=== PATIENT | male | born 1975 | race African-American/Black ===

== ENCOUNTER 2017-05-18 14:21 | Emergency (ER) | payer OTHER ==
[~2017-05-18] VITALS: Ht 170.2 cm; Wt 79.5 kg
[2017-05-18 14:28] VITALS: BP 124/62; PULSE 72; RESP 18; TEMP 98; O2SAT 96
--- NOTE | 2017-05-18 15:06 | PD ---
HPI Chief Complaint: Psychiatric Symptoms Time Seen by Provider: 15:03 Travel History International Travel<30 days: No Contact w/Intl Traveler<30days: No Traveled to known affect area: No History of Present Illness HPI Patient is a 42-year-old male presenting to emergency for evaluation of suicidal ideations. Patient is currently under [place] act for making threats to run into traffic. He reports a previous suicide attempt 10 years ago where he attempted to run into traffic. He reports that he's been feeling more depressed and suicidal for the last 4 days. Patient endorses substance abuse, he states he smokes crack cocaine. He was released from detention 2 weeks ago, he had been on Celexa while in group home and has been off of it for 2 weeks because he has no new prescription. He has no physical complaints at this time. He denies any visual auditory hallucinations. He last smoked crack cocaine this morning, he has not had any alcohol today. [facility] Past Medical History Depression: Yes Immunizations Current: Yes Social History Alcohol Use: Yes Tobacco Use: Yes Substance Use: Yes Allergies-Medications (Allergen,Severity, Reaction): Coded Allergies: No Known Allergies (Unverified , 05/18/17) Reported Meds & Prescriptions Reported Meds & Active Scripts Active Celexa (Citalopram Hydrobromide) 20 Mg Tab 20 Mg PO DAILY Reported Remeron (Mirtazapine) 15 Mg Tab 15 Mg PO HS Review of Systems Except as stated in HPI: all other systems reviewed are Neg Psychiatric: Positive: Depression, Suicidal Ideations, Substance Abuse Physical Exam Narrative GENERAL: Well-developed, well-nourished, alert male. Resting in no acute distress. SKIN: Focused skin assessment warm/dry. HEAD: Atraumatic. Normocephalic. EYES: Pupils equal and round. No scleral icterus. No injection or drainage. ENT: No nasal bleeding or discharge. Mucous membranes pink and moist. NECK: Trachea midline. No JVD. CARDIOVASCULAR: Regular rate and rhythm. No murmur appreciated. RESPIRATORY: No accessory muscle use. Clear to auscultation. Breath sounds equal bilaterally. GASTROINTESTINAL: Abdomen soft, non-tender, nondistended. Hepatic and splenic margins not palpable. MUSCULOSKELETAL: No obvious deformities. No clubbing. No cyanosis. No edema. NEUROLOGICAL: Awake and alert. No obvious cranial nerve deficits. Motor grossly within normal limits. Normal speech. PSYCHIATRIC: Depressed mood and affect; insight and judgment normal. Data Data Last Documented VS Vital Signs Date Time Temp Pulse Resp B/P Pulse Ox O2 Delivery O2 Flow Rate FiO2 05/18/17 16:16 98.0 62 16 121/75 97 Room Air Orders Complete Blood Count With Diff (05/18/17 14:56) Comprehensive Metabolic Panel (05/18/17 14:56) Psych Screen (05/18/17 14:56) Drug Screen, Random Urine (05/18/17 14:56) Alcohol (Ethanol) (05/18/17 14:56) Salicylates (Aspirin) (05/18/17 14:56) Tylenol (Acetaminophen) (05/18/17 14:56) Potassium Chloride (Kcl) (05/18/17 17:45) Labs Laboratory Tests Test 05/18/17 16:24 White Blood Count 6.2 TH/MM3 Red Blood Count 4.74 MIL/MM3 Hemoglobin 13.8 GM/DL Hematocrit 40.8 % Mean Corpuscular Volume 86.1 FL Mean Corpuscular Hemoglobin 29.1 PG Mean Corpuscular Hemoglobin 33.8 % Concent Red Cell Distribution Width 12.9 % Platelet Count 196 TH/MM3 Mean Platelet Volume 8.4 FL Neutrophils (%) (Auto) 35.8 % Lymphocytes (%) (Auto) 54.3 % Monocytes (%) (Auto) 7.8 % Eosinophils (%) (Auto) 1.7 % Basophils (%) (Auto) 0.4 % Neutrophils # (Auto) 2.2 TH/MM3 Lymphocytes # (Auto) 3.4 TH/MM3 Monocytes # (Auto) 0.5 TH/MM3 Eosinophils # (Auto) 0.1 TH/MM3 Basophils # (Auto) 0.0 TH/MM3 CBC Comment DIFF FINAL Differential Comment Sodium Level 145 MEQ/L Potassium Level 3.3 MEQ/L Chloride Level 113 MEQ/L Carbon Dioxide Level 25.7 MEQ/L Anion Gap 6 MEQ/L Blood Urea Nitrogen 7 MG/DL Creatinine 1.25 MG/DL Estimat Glomerular Filtration 78 ML/MIN Rate Random Glucose 94 MG/DL Calcium Level 8.2 MG/DL Total Bilirubin 0.3 MG/DL Aspartate Amino Transf 10 U/L (AST/SGOT) Alanine Aminotransferase 16 U/L (ALT/SGPT) Alkaline Phosphatase 63 U/L Total Protein 6.2 GM/DL Albumin 3.3 GM/DL Salicylates Level LESS THAN 1.7 MG/DL Acetaminophen Level LESS THAN 2.0 MCG/ML Ethyl Alcohol Level LESS THAN 3 MG/DL MDM Medical Decision Making Medical Screen Exam Complete: Yes Emergency Medical Condition: Yes Interpretation(s) Vital Signs Date Time Temp Pulse Resp B/P Pulse Ox O2 Delivery O2 Flow Rate FiO2 05/18/17 14:28 98.0 72 18 124/62 96 Differential Diagnosis Mood disorder versus substance abuse versus suicidal ideations versus depression versus other Narrative Course Patient is a 42-year-old male presenting to the emergency under [employer] for making suicidal statements. He admits freely to being depressed and addicted to crack cocaine. His symptoms have worsened since he was released from detention 2 weeks ago and has been off of his antidepressants. Patient's vital signs are stable, Mental health screening discussed with the patient. Psychiatric screen ordered. CBC is unremarkable, chemistry with potassium at 3.3, oral replacement ordered. Patient was seen by psychiatry, Lees act has been lifted. Patient was advised to follow-up at [facility] by psychiatrist. He was advised that he may have to wait for a bed. Patient was offered refill of Celexa by psychiatry which he was taking multiple incarcerated 2 weeks ago. He states he was on Celexa 20 mg daily. He will be given a dose now, Dr. Leon wrote a prescription for him. Patient was given written information regarding the [facility] as well as the [facility]. He verbalized understanding of discharge instructions. He was advised to return to emergency department for any new or worsening symptoms. Patient is stable for discharge. Diagnosis Primary Impression: Cocaine abuse Additional Impression: Depression Qualified Code: F32.9 - Depression, unspecified depression type Referrals: [facility] 1 day Call on a daily basis to see if a bed is available Patient Instructions: Cocaine Abuse (ED), General Instructions Additional Instructions: Follow-up at the [facility], call on a daily basis to see if a bed is available for rehabilitation Follow up at the [facility] Return to emergency department for any new or worsening symptoms Med/Other Pt SpecificInfo: Prescription(s) given Scripts Citalopram (Celexa)20 Mg Tab20 Mg PO DAILY #30 TAB Ref 0 Prov:Ketan Leon MD 05/18/17 Disposition: 01 DISCHARGE HOME Condition: Stable [place] May 18, 2017 15:05
--- NOTE | 2017-05-18 16:11 | PD ---
History of Present Illness Chief Complaint: Psychiatric Symptoms Time Seen by Provider: 15:30 Travel History International Travel<30 Days: No Contact w/Intl Traveler<30days: No Known affected area: No Legal Status Legal Status: Lees Act Le[place] Act Signed By: History of Present Illness: 42-year-old male with a multiyear history of crack cocaine abuse. Last smoked crack cocaine this morning. Came to the emergency department under a [place] act for reported suicidal threats of running into traffic. When interviewed by this physician, the patient is looking for treatment for his substance abuse problem. He has not been treated previously at [facility]. He states he made the suicidal comments because he wants help with his drug and alcohol problem. He was informed this facility is not license for detox and rehabilitation and that [facility] is the appropriate disposition. He was also informed he may have to wait to get a bed in that facility. This physician notes the patient was taking Celexa while he was incarcerated, up to 2 weeks ago. This physician will refill that prescription if the patient would like to start on that medication. PFSH Past Medical History Depression: Yes Immunizations Current: Yes Psychiatric History Psychiatric History Hx Psychiatric Treatment: Reports history of suicide attempt 10 years ago. History of Inpatient Treatment: No Guns or firearms in home: No Social History Hx Alcohol Use: Yes Hx Tobacco Use: Yes Hx Substance Use: Yes Hx of Substance Use Treatment: No Allergies-Medications (Allergen,Severity, Reaction): Coded Allergies: No Known Allergies (Unverified , 05/18/17) Review of Systems Except as stated in HPI: all other systems reviewed are Neg Exam Alert: Yes [place]: Person, Place, Date, Situation Mood: Calm Affect: Appropriate Speech: Clear, Logical Eye Contact: Normal Memory Intact: Immediate, Recent, Remote Insight/Judgement Adequate MDM Medical Decision Making Medical Record Reviewed: Yes Assessment/Plan 42-year-old male with history of crack cocaine abuse. Admitted to making suicidal threats because he wants help with his drug problem. Informed this facility is not license for drug detox or rehabilitation. Offered a prescription for Celexa because he was taking this while incarcerated. Referred to [facility] for further treatment. Patient may continue to act out but this would not be a reason for psychiatric hospitalization. In fact, it would be counter therapeutic to enable the patient's manipulations to continue. Orders Complete Blood Count With Diff (05/18/17 14:56) Comprehensive Metabolic Panel (05/18/17 14:56) Psych Screen (05/18/17 14:56) Drug Screen, Random Urine (05/18/17 14:56) Alcohol (Ethanol) (05/18/17 14:56) Salicylates (Aspirin) (05/18/17 14:56) Tylenol (Acetaminophen) (05/18/17 14:56) Results Vital Signs Date Time Temp Pulse Resp B/P Pulse Ox O2 Delivery O2 Flow Rate FiO2 05/18/17 14:28 98.0 72 18 124/62 96 Diagnosis Primary Impression: Cocaine abuse Ketan Leon MD May 18, 2017 16:11
[2017-05-18] MEDS ORDERED: CELE20TA PO (16:12)
[2017-05-18 16:16] VITALS: BP 121/75; PULSE 62; RESP 16; TEMP 98; O2SAT 97
[2017-05-18] MEDS ORDERED: REME15TA PO (16:17)
[2017-05-18 16:47] LABS: AUTOMATED NEUTROPHIL # 2.2 TH/MM3 (1.8-7.7); BASOPHIL % 0.4 % (0.0-2.0); EOSINOPHIL # 0.1 TH/MM3 (0-0.4); EOSINOPHIL % 1.7 % (0.0-4.0); HEMATOCRIT 40.8 % (39.0-51.0); HEMO FLAGS DIFF FINAL; LYMPH % 54.3 % (9.0-44.0); LYMPHOCYTE # 3.4 TH/MM3 (1.0-4.8); MEAN CELL VOLUME 86.1 FL (80.0-100.0); MEAN CORPUSCULAR HEMOGLOBIN 29.1 PG (27.0-34.0); MEAN CORPUSCULAR HGB CONC 33.8 % (32.0-36.0); MONO % 7.8 % (0.0-8.0); NEUT % 35.8 % (16.0-70.0); PLATELET COUNT 196 TH/MM3 (150-450); RED BLOOD COUNT 4.74 MIL/MM3 (4.50-5.90); RED CELL DISTRIBUTION WIDTH 12.9 % (11.6-17.2); WHITE BLOOD COUNT 6.2 TH/MM3 (4.0-11.0)
[2017-05-18 17:05] LABS: ANION GAP 6 MEQ/L (5-15); AST (GOT) 10 U/L (15-37); BICARBONATE 25.7 MEQ/L (21.0-32.0); BLOOD UREA NITROGEN 7 MG/DL (7-18); CHLORIDE 113 MEQ/L (98-107); GLOMERULAR FILTRATION RATE 78 ML/MIN (>89); POTASSIUM 3.3 MEQ/L (3.5-5.1); SODIUM (NA) 145 MEQ/L (136-145)
[2017-05-18 17:07] LABS: ACETAMINOPHEN LESS THAN 2.0 MCG/ML (10.0-30.0); ALT (GPT) 16 U/L (12-78)
[2017-05-18 17:08] LABS: ALKALINE PHOSPHATASE 63 U/L (45-117); TOTAL BILIRUBIN ADULT 0.3 MG/DL (0.2-1.0)
[2017-05-18] MEDS ORDERED: POTASSIUM CHLORIDE 10 MEQ CONTROLLED RELEASE TAB PO ONE (17:45)
[2017-05-18] MEDS ORDERED: CITALOPRAM HYDROBROMIDE 20 MG TAB PO ONE (18:00)
== END 2017-05-18 19:07 | disposition home or self-care (01) ==
LOC: NEPD 14:21
DX: F14.10 Cocaine abuse, uncomplicated (principal); F32.9 Major depressive disorder, single episode, unspecified; R45.851 Suicidal ideations; Z87.891 Personal history of nicotine dependence
CPT/HCPCS: 80053; 80307; 85025; 99285